=== PATIENT | male | born 1955 | race Caucasian/White ===

== ENCOUNTER 2020-06-13 11:47 | Emergency (ER) | payer OTHER ==
[~2020-06-13] VITALS: Ht 177.8 cm; Wt 104.3 kg
[~2020-06-13 11:47] MED LIST: ALLOPURINOL 10100 M1 PO; ASPIRIN EC81 M1; ASPIRIN325 PO; BETAMETHASONE D15 G1 TP; CEPHALEXIN; IMDUR 30 MG TAB30 M1; LIPITOR 40 MG T40 M1; MEDROL DOSPAK21 TAB PO; METOPROLOL SUCC25 M1; NITROSTAT0.4 MG; PLAVIX 75 MG TA75 M1 PO; TOPROL XL50 MG PO
[2020-06-13] MEDS ORDERED: LISINOPRIL10 MG PO (12:02)
[2020-06-13 12:12] LABS: ABSOLUTE NEUTROPHILS 3.5 thou/uL (1.4-8.2); BASOPHILS 1.2 % (0.0-2.0); EOSINOPHILS 3.9 % (0.0-3.0); HEMATOCRIT 45.8 % (42.0-52.0); HEMOGLOBIN 15.1 gm/dL (14.0-18.0); LYMPHOCYTES 20.2 % (24.0-44.0); MCH 29.3 pg (26.0-34.0); MONOCYTES 10.8 % (1.0-8.0); PLATELET COUNT 262 thou/uL (150-400); POLYS 63.9 % (36.0-66.0); RBC 5.15 mil/uL (4.50-6.00); RDW 13.9 % (10.5-14.5); WBC 5.5 thou/uL (4.0-11.0)
[2020-06-13 12:22] LABS: ANION GAP 6 mmol/L (7-16); BUN 13 mg/dL (7-18); CALCIUM 9.2 mg/dL (8.5-10.1); CHLORIDE 102 mmol/L (98-107); CO2 30 mmol/L (21-32); GLUCOSE 169 mg/dL (74-106); SODIUM 138 mmol/L (136-145)
[2020-06-13 12:31] LABS: TROPONIN-I <0.06 ng/mL (<0.06)
[2020-06-13 14:55] VITALS: BP 115/67
--- NOTE | 2020-06-14 07:31 | EKG ---
[facility] [place] [address] ELECTROCARDIOGRAM REPORT Name: PHU SCHROEDER Room #: DEP [facility]#: [id number] Admission: 06/13/20 Attend Phys: Discharge: 06/13/20 Date of : 55 Report #: [id number] THIS REPORT FOR: cc: Jamar Li MD, Mark L. 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
--- NOTE | 2020-06-14 07:31 | EKG ---
[facility] [place] [address] ELECTROCARDIOGRAM REPORT Name: PHU SCHROEDER [id number] Admission: 06/13/20 Attend Phys: Discharge: 06/13/20 Date of : 55 Report #: [id number] THIS REPORT FOR: cc: Jamar Li MD, Mark L. 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1955 Requested By: Archie Ocampo Order Number: [id number] MD: Greg Conroy Measurements Intervals [place] Rate: 67 P: -19 [place]: 174 QRS: 6 QRSD: 101 T: 64 QT: 410 QTc: 433 Interpretive Statements Sinus rhythm Borderline T abnormalities, anterior leads Baseline wander in lead(s) V1,V2,V3 Compared to ECG 12/22/2014 18:19:48 Ventricular premature complex(es) no longer present Poor R-wave progression no longer present T-wave abnormality still present Electronically Signed On 06-14-2020 7:30:53 CDT by Greg Conroy [email or web address] <ELECTRONICALLY SIGNED> By: Greg Conroy MD, FACC 06/14/20 0730 [id number] [id number] Greg Conroy MD, FAC /EPI
== END 2020-06-13 15:06 | disposition home or self-care (01) ==
LOC: ER 11:47
PROVIDERS: Nurse Practitioner
DX: R07.9 Chest pain, unspecified (principal); I10 Essential (primary) hypertension; J45.909 Unspecified asthma, uncomplicated; E78.5 Hyperlipidemia, unspecified; Z90.89 Acquired absence of other organs; Z87.891 Personal history of nicotine dependence; Z79.899 Other long term (current) drug therapy; Z91.041 Radiographic dye allergy status